=== PATIENT | male | born 1980 | race Caucasian/White ===

== ENCOUNTER → 2017-11-24 | Outpatient (CLI) | payer MEDICAID | LOC: FIMAGING 16:14 | PROVIDERS: ATTEND Family Medicine | DX: R42 Dizziness and giddiness (principal); H91.92 Unspecified hearing loss, left ear ==

== ENCOUNTER → 2018-02-08 | Outpatient (CLI) | payer MEDICAID | LOC: FIMAGING 14:44 | PROVIDERS: ATTEND Family Medicine | DX: R11.10 Vomiting, unspecified (principal); R29.818 Other symptoms and signs involving the nervous system; Z87.828 Personal history of other (healed) physical injury and trauma ==

== ENCOUNTER 2018-03-20 15:15 | Emergency (ER) | payer MEDICAID ==
--- NOTE | 2018-03-20 15:59 | EDPHY ---
H & P Time Seen by Provider: 03/20/18 15:40 HPI/ROS: CHIEF COMPLAINT: Blood in urine, left-sided abdominal pain HISTORY OF PRESENT ILLNESS: Patient is a 38-year-old male with a history of recurrent kidney stones who presents to the emergency department with hematuria and left-sided abdominal pain. His symptoms have been present for 3 days. The patient reports that he is on a weight loss program where he drinks large volumes of water. He was recently on a fishing trip and had been staying in a hotel with long days of travel. He complained of left lower back pain but he thought maybe from the travel. He he has now developed left lower abdominal discomfort. He noted multiple episodes of hematuria. No dysuria or frequency. No fevers or chills. No nausea or vomiting. REVIEW OF SYSTEMS: My complete review of systems is negative except as mentioned in the HPI. Past Medical/Surgical History: Includes kidney stone, concussion, pyelonephritis Past surgical history: Hip surgery Social history: Patient denies smoking or drugs. Smoking Status: Former smoker Physical Exam: Vitals noted. Afebrile. Hypertensive. GENERAL: Well-appearing, in no acute distress, alert. HEENT: Eyes normal to inspection, normal pharynx, no signs of dehydration. NECK: No thyromegaly, no lymphadenopathy, supple. RESPIRATORY: Clear to auscultation bilaterally, no rales, rhonchi or wheezing. CVS: Regular rate and rhythm, no rubs, murmurs, or gallops. ABDOMEN: Soft, left lower quadrant abdominal tenderness palpation with no rebound or guarding, nondistended, no organomegaly. BACK: Normal to inspection, no CVA tenderness. SKIN: Normal color, no rash, warm, dry. No pallor. EXTREMITIES: No pedal edema, no calf tenderness, no Homans sign or cords, no joint swelling. NEURO/PSYCH: Alert and oriented, normal mood and affect, normal motor sensory exam. Constitutional: Initial Vital Signs Temperature (C) 36.6 C 03/20/18 15:18 Heart Rate 68 03/20/18 15:18 Respiratory Rate 18 03/20/18 15:18 Blood Pressure 175/88 H 03/20/18 15:18 O2 Sat (%) 98 03/20/18 15:18 O2 Delivery Mode Room Air Allergies/Adverse Reactions: tetracycline Allergy (Verified 03/20/18 15:21) Home Medications: Medication Instructions Recorded Cephalexin [Keflex (*)] 500 mg PO QID 7 Days cap 03/20/18 Diclofenac Sodium 03/20/18 Hydrocodone/APAP 5/325 03/20/18 Metoprolol Succinate 03/20/18 Tamsulosin HCl [Flomax] 0.4 mg PO DAILY #4 cap 03/20/18 Medical Decision Making - Diagnostics Imaging Results: Imaging Impressions Abdomen/Pelvis CT 03/20/18 16:14 Impression: Bilateral nephrolithiasis with 3 mm calculus present in the left ureteropelvic junction. Attention: This CT examination is specifically designed to evaluate patients who are clinically suspected of having acute obstructive uropathy. This examination does not use radiographic contrast, and as such, provides only a limited evaluation of the abdomen, pelvis and retroperitoneum. If there is further clinical suspicion for pathological conditions other than obstructive uropathy, a complete CT evaluation of the abdomen and pelvis utilizing intravenous, oral, and rectal contrast should be considered. ED Course/Re-evaluation: In the emergency department I discussed possible etiologies with the patient. I answered all of his questions. IV was placed. Laboratories studies were ordered. Patient given Toradol 30 mg IV. The patient's UA is positive for white cells as well as red cells. Patient has 2+ protein. There is 4+ bacteria. Based on these findings and the patient's history of pyelonephritis he was given Rocephin 1 g IV. The patient's CBC and chemistry unremarkable. Patient's CT scan showed a 3 mm stone in the left UPJ. There is no hydronephrosis. The patient does have noted kidney stones. I discussed the results with the patient. I answered all his questions. His pain was controlled in the emergency department. I discussed the possibility of his stone moving in and out of the ureter. I also discussed UA findings. The patient feels comfortable with discharge. He will follow up with Urology. He is given a prescription for Keflex. He will return with worsening symptoms. He is given warnings prior to leaving. Differential Diagnosis: My differential includes but is not limited to kidney stone, pyelonephritis, urinary tract infection, diverticulitis, diverticular abscess, small-bowel obstruction, perforation, musculoskeletal strain - Data Points Laboratory Results: Laboratory Results 03/20/18 16:30 03/20/18 16:30 03/20/18 03/20/18 03/20/18 16:30 16:30 15:40 WBC 7.96 10^3/uL 10^3/uL (3.80-9.50) RBC 5.44 10^6/uL 10^6/uL (4.40-6.38) Hgb 15.5 g/dL g/dL (13.7-17.5) Hct 47.7 % % (40.0-51.0) MCV 87.7 fL fL (81.5-99.8) MCH 28.5 pg pg (27.9-34.1) MCHC 32.5 g/dL g/dL (32.4-36.7) RDW 13.2 % % (11.5-15.2) Plt Count 185 10^3/uL 10^3/uL (150-400) MPV 10.1 fL fL (8.7-11.7) Neut % (Auto) 65.3 % % (39.3-74.2) Lymph % (Auto) 25.0 % % (15.0-45.0) [place] % (Auto) 6.3 % % (4.5-13.0) Eos % (Auto) 2.9 % % (0.6-7.6) Baso % (Auto) 0.4 % % (0.3-1.7) Nucleat RBC Rel Count 0.0 % % (0.0-0.2) Absolute Neuts (auto) 5.20 10^3/uL 10^3/uL (1.70-6.50) Absolute Lymphs (auto) 1.99 10^3/uL 10^3/uL (1.00-3.00) Absolute Monos (auto) 0.50 10^3/uL 10^3/uL (0.30-0.80) Absolute Eos (auto) 0.23 10^3/uL 10^3/uL (0.03-0.40) Absolute Basos (auto) 0.03 10^3/uL 10^3/uL (0.02-0.10) Absolute Nucleated RBC 0.00 10^3/uL 10^3/uL (0-0.01) Immature Gran % 0.1 % % (0.0-1.1) Immature Gran # 0.01 10^3/uL 10^3/uL (0.00-0.10) Sodium 146 mEq/L H mEq/L (135-145) Potassium 4.5 mEq/L mEq/L (3.3-5.0) Chloride 109 mEq/L mEq/L (97-110) Carbon Dioxide 23 mEq/l mEq/l (22-31) Anion Gap 14 mEq/L mEq/L (8-16) BUN 16 mg/dL mg/dL (7-23) Creatinine 0.9 mg/dL mg/dL (0.7-1.3) Estimated GFR > 60 Glucose 97 mg/dL mg/dL (70-100) Calcium 8.7 mg/dL mg/dL (8.5-10.4) Urine Color [place] Urine Appearance MODERATELY TURBID Urine pH 5.0 (5.0-7.5) Ur Specific [place] 1.030 (1.002-1.030) Urine Protein 2+ H (NEGATIVE) Urine Ketones NEGATIVE (NEGATIVE) Urine Blood 3+ H (NEGATIVE) Urine Nitrate NEGATIVE (NEGATIVE) Urine Bilirubin NEGATIVE (NEGATIVE) Urine Urobilinogen NEGATIVE EU EU (0.2-1.0) Ur Leukocyte Esterase NEGATIVE (NEGATIVE) Urine RBC 50-182 /hpf H /hpf (0-3) Urine WBC 25-50 /hpf H /hpf (0-3) Ur Epithelial Cells TRACE /lpf /lpf (NONE-1+) Amorphous Sediment PRESENT /hpf /hpf (NONE-1+) Urine Bacteria 4+ /hpf H /hpf (NONE SEEN) Urine Glucose NEGATIVE (NEGATIVE) Medications Given: Discontinued Medications Ceftriaxone Sodium/Dextrose (Rocephin 1 Gm (Premix)) 50 mls @ 100 mls/hr IV EDNOW ONE PRN Reason: Protocol Stop: 03/20/18 16:47 Last Admin: 03/20/18 16:29 Dose: 50 mls Sodium Chloride (Ns) 1,000 mls @ 0 mls/hr IV EDNOW ONE; Wide Open PRN Reason: Protocol Stop: 03/20/18 16:22 Last Admin: 03/20/18 16:30 Dose: 1,000 mls Departure - Departure Disposition: Home, Routine, Self-Care Clinical Impression: Abdominal pain Qualifiers: Abdominal location: left lower quadrant Qualified Code(s): R10.32 - Left lower quadrant pain Condition: Good Instructions: Abdominal Pain (ED), Urinary Tract Infection in Men (ED) Additional Instructions: You need to take your entire course of antibiotics. You have a urinary tract infection. You have a 3 mm stone in the left ureteral pelvic junction. Return with increasing pain, vomiting, fever, or any other concerns Referrals: Ibis Moreno MD [Primary Care Provider] - As per Instructions Aaron Doty MD [Medical Doctor] - 5-7 days, call for appt. Prescriptions: Cephalexin [Keflex (*)] 500 mg PO QID 7 Days cap Tamsulosin HCl [Flomax] 0.4 mg PO DAILY #4 cap
[2018-03-20] MEDS ORDERED: NS 1,000 ML IV ONE (16:21)
[2018-03-20 16:43] LABS: PLATELET COUNT 185 10^3/uL (150-400)
[2018-03-20 17:15] VITALS: BP 156/88
== END 2018-03-20 17:15 | disposition home or self-care (01) ==
DX: R10.32 Left lower quadrant pain (principal); E86.9 Volume depletion, unspecified; Z87.891 Personal history of nicotine dependence
CPT/HCPCS: 96365; J0696